=== PATIENT | male | born 1990 | race Caucasian/White ===

== ENCOUNTER 2020-03-22 16:37 | Emergency (ER) | payer BC, OTHER | END 2020-03-22 17:40 | disposition home or self-care (01) | LOC: ERS 16:37 | DX: S60.322A Blister (nonthermal) of left thumb, initial encounter (principal); Z79.899 Other long term (current) drug therapy; W86.0XXA Exposure to domestic wiring and appliances, initial encounter | CPT/HCPCS: 99283 ==

== ENCOUNTER 2020-10-15 | Emergency (ER) | payer BC, OTHER ==
[2020-10-15] MEDS ORDERED: Lidocaine Viscous Sol 2% 15 ml UD Cup ONE (01:49)
[2020-10-15 01:54] LABS: #Basophils 0.1 thou/uL (0.0-0.2); #Eosinphils 0.1 thou/uL (0.0-0.7); #Lymphocytes 2.1 thou/uL (1.20-3.40); #Monocytes 0.6 thou/uL (0.11-0.59); #Neutrophils 4.4 thou/uL (1.40-6.50); %Eosinophils 1.1 % (0.0-10.0); %Lymphocytes 28.8 % (21.0-51.0); %Monocytes 8.8 % (0.0-10.0); %Neutrophils 60.3 % (42.0-75.0); Hemoglobin 15.9 g/dL (14.0-18.0); Mean Corpuscular HGB CONC 33.8 g/dL (32.0-36.0); Mean Corpuscular Hemoglobin 30.4 pg (27.0-31.0); Mean Platelet Volume 7.5 fL (7.4-10.4); Platelet Count 214 thou/uL (130-400); Red Blood Cell (RBC) Count 5.23 mill/uL (4.70-6.10); White Blood Cell (WBC) Count 7.3 thou/uL (4.8-10.8)
[2020-10-15] MEDS ORDERED: Lidocaine 2% Viscous Solution 20 ML, Aluminum & Magnesium Hydroxide 30 ML, Donnatal Eli... SSW SCH (02:00)
[2020-10-15 02:12] LABS: ALT (SGPT) 50 U/L (8-55); AST (SGOT) 33 U/L (5-34); Albumin 5.1 g/dL (3.5-5.0); Alkaline Phosphatase 40 U/L (40-110); Anion Gap 15 mmol/L (10-20); BUN (Urea Nitrogen) 18 mg/dL (8.9-20.6); Bilirubin, Total 0.6 mg/dL (0.2-1.2); Calc. Creatinine Clearance 0 mL/min (70-130); Calcium 9.6 mg/dL (7.8-10.44); Carbon Dioxide 29 mmol/L (22-29); Chloride 100 mmol/L (98-107); Estimated GFR-MDRD 81; Globulin 3.8 g/dL (2.4-3.5); Glucose 99 mg/dL (70-105); Lipase 16 U/L (8-78); Potassium 3.9 mmol/L (3.5-5.1); Protein, Total 8.9 g/dL (6.0-8.3); Sodium 140 mmol/L (136-145)
--- NOTE | 2020-10-15 08:54 | RAD ---
EXAM: Chest one view: HISTORY: Weakness, lethargy COMPARISON: None FINDINGS: Heart size: Within normal limits. Lungs: Clear of acute process. No evidence for confluent lobar pneumonia, significant pleural effusion, acute edema, or pneumothorax , or other significant acute process. IMPRESSION: No significant acute intrathoracic disease.
== END 2020-10-15 03:52 | disposition home or self-care (01) ==
LOC: ERS
DX: R07.89 Other chest pain (principal); R10.13 Epigastric pain; R11.0 Nausea; G40.909 Epilepsy, unspecified, not intractable, without status epilepticus; Z79.899 Other long term (current) drug therapy
CPT/HCPCS: 71045; 80053; 83690; 84484; 85025; 93005

== ENCOUNTER 2021-01-25 16:09 | Emergency (ER) | payer OTHER ==
[2021-01-25 16:44] LABS: #Eosinphils 0.4 thou/uL (0.0-0.7); #Lymphocytes 2.2 thou/uL (1.20-3.40); #Monocytes 0.4 thou/uL (0.11-0.59); #Neutrophils 3.1 thou/uL (1.40-6.50); %Basophils 0.6 % (0.0-1.0); %Eosinophils 6.2 % (0.0-10.0); %Lymphocytes 35.9 % (21.0-51.0); %Monocytes 6.7 % (0.0-10.0); %Neutrophils 50.6 % (42.0-75.0); Hemoglobin 15.6 g/dL (14.0-18.0); Mean Corpuscular HGB CONC 33.3 g/dL (32.0-36.0); Mean Corpuscular Hemoglobin 31.1 pg (27.0-31.0); Mean Corpuscular Volume 93.2 fL (78.0-98.0); Mean Platelet Volume 7.6 fL (7.4-10.4); Platelet Count 222 thou/uL (130-400); RBC Distribution Width 11.2 % (11.5-14.5); Red Blood Cell (RBC) Count 5.04 mill/uL (4.70-6.10); White Blood Cell (WBC) Count 6.2 thou/uL (4.8-10.8)
[2021-01-25 16:58] LABS: ALT (SGPT) 29 U/L (8-55); AST (SGOT) 25 U/L (5-34); Albumin 4.5 g/dL (3.5-5.0); Alkaline Phosphatase 42 U/L (40-110); Anion Gap 14 mmol/L (10-20); BUN (Urea Nitrogen) 20 mg/dL (8.9-20.6); Bilirubin, Total 0.3 mg/dL (0.2-1.2); CK (CPK) 393 U/L (30-200); Calc. Creatinine Clearance 0 mL/min (70-130); Calcium 9.2 mg/dL (7.8-10.44); Carbon Dioxide 25 mmol/L (22-29); Chloride 104 mmol/L (98-107); Globulin 3.1 g/dL (2.4-3.5); Glucose 125 mg/dL (70-105); Potassium 3.8 mmol/L (3.5-5.1); Protein, Total 7.6 g/dL (6.0-8.3); Sodium 139 mmol/L (136-145)
--- NOTE | 2021-01-28 16:49 | EKG ---
Test Reason : Blood Pressure : / mmHG Vent. Rate : 092 BPM Atrial Rate : 092 BPM P-R Int : 146 ms QRS Dur : 096 ms QT Int : 356 ms P-R-T Axes : 042 009 032 degrees QTc Int : 440 ms Normal sinus rhythm Normal ECG Confirmed by CHRISTIAN DIOP M.D. ([id number]), staff editor MARY AVALOS ([id number] on 01/28/2021 4:49:12 PM Referred By: Confirmed By:CHRISTIAN IDOP M.D.
== END 2021-01-25 17:25 | disposition home or self-care (01) ==
LOC: ERS 16:09
DX: R55 Syncope and collapse (principal); R29.700 NIHSS score 0; R42 Dizziness and giddiness; G40.909 Epilepsy, unspecified, not intractable, without status epilepticus; Z79.899 Other long term (current) drug therapy
CPT/HCPCS: 80053; 82550; 84484; 85025; 93005

== ENCOUNTER 2024-04-28 11:41 | Emergency (ER) | payer OTHER | END 2024-04-28 13:41 | disposition home or self-care (01) | LOC: ERS 11:41 | DX: M54.50 Low back pain, unspecified (principal); R10.32 Left lower quadrant pain; G40.909 Epilepsy, unspecified, not intractable, without status epilepticus; V43.52XA Car driver injured in collision with other type car in traffic accident, initial encounter; W22.11XA Striking against or struck by driver side automobile airbag, initial encounter; Y93.89 Activity, other specified; Z79.899 Other long term (current) drug therapy | CPT/HCPCS: 99283 ==